=== PATIENT | female | born 1975 | race Caucasian/White ===

== ENCOUNTER → 2016-10-18 | Outpatient (CLI) | payer BC, OTHER ==
--- NOTE | 2016-10-18 12:57 | KCIC ---
EXAM: Bilateral digital screening mammogram. HISTORY: 41-year-old female presents for screening mammography. COMPARISON: A prior study dated 01/03/2009 is not available for comparison. TECHNIQUE: Full field digital craniocaudal and mediolateral oblique views of both breasts are obtained. Computer-aided detection is applied. FINDINGS: Breast parenchymal composition: Level B - Scattered fibroglandular densities. There is a focal density within the 10 o'clock position of the right breast at mid to posterior depth. There are few benign calcifications within both breasts. There is no architectural distortion within either breast. IMPRESSION: BI-RADS Category 0: Needs additional imaging. Further evaluation with spot compression views of density within the 10 o'clock position of the right breast is recommended. Sonographic imaging may also be performed if deemed indicated based on additional imaging findings. The patient will be contacted to return for additional imaging. This study was interpreted with the benefit of Computerized Aided Detection (CAD). Mammography is not 100% sensitive in detecting breast cancer. Therefore, a self breast exam and a clinical breast exam are very important. A negative mammogram does not negate a clinically suspicious finding and should not result in a delay in biopsying a clinically suspicious abnormality. The patient information was entered into the reminder system with a target for her next mammogram. Electronically signed by: Eleni Valera (Oct 18, 2016 12:55:54)
== END | disposition home or self-care (01) ==
LOC: KCIC MAMMO 11:44
PROVIDERS: ATTEND Internal Medicine
DX: Z12.31 Encounter for screening mammogram for malignant neoplasm of breast (principal)
CPT/HCPCS: G0202; 77067

== ENCOUNTER → 2016-11-01 | Outpatient (CLI) | payer BC, OTHER ==
--- NOTE | 2016-11-01 11:13 | RAD ---
DATE: 2 benign 2017 EXAM: DIGITAL DIAGNOSTIC RT HISTORY: Possible abnormality seen on screening COMPARISON: Screening examination 10/18/2016 This study was interpreted with the benefit of Computerized Aided Detection (CAD). FINDINGS: The breast parenchyma unchanged relative to the screening exam. Coned compression cc and MLO images were obtained as well as rolled cc views. On some of the images a nodule is suggested laterally in the breast (cone compression CC image and the rolled view medially) Targeted ultrasound was performed. No abnormality is seen. The findings are probably benign but a follow-up mammographic examination of the right breast in 6 months is suggested for further documentation of no significant pathology IMPRESSION: Probable benign findings BI-RADS CATEGORY: 3 PROBABLE BENIGN FINDING(S-SHORT INTERVAL FOLLOW-UP SUGGESTED RECOMMENDED FOLLOW-UP: 6M 6 MONTH FOLLOW-UP PQRS compliance statement: Patient information was entered into a reminder system with a target due date 05/01/2017 for the next mammogram. Mammography is a sensitive method for finding small breast cancers, but it does not detect them all and is not a substitute for careful clinical examination. A negative mammogram does not negate a clinically suspicious finding and should not result in delay in biopsying a clinically suspicious abnormality. "Our facility is accredited by the [employer] Mammography Program."
== END | disposition home or self-care (01) ==
LOC: KCIC MAMMO 09:54
PROVIDERS: ATTEND Internal Medicine
DX: R92.2 Inconclusive mammogram (principal); Z90.13 Acquired absence of bilateral breasts and nipples
CPT/HCPCS: 76641; G0206; 77065

== ENCOUNTER 2016-12-24 10:20 | Emergency (ER) | payer BC, OTHER ==
[~2016-12-24] VITALS: Ht 154.9 cm; Wt 68.0 kg
[2016-12-24] MEDS ORDERED: IV NORMAL SALINE 1000ML BAG 1,000 ML IV SCH (11:00)
[2016-12-24] MEDS ORDERED: LORAZEPAM 2 MG/ML VIAL. IV ONE (11:00)
--- NOTE | 2016-12-24 11:08 | PHYS DOC ---
Past Medical History Past Medical History: Hypothyroid Past Surgical History: , Other Additional Past Surgical Histo: BREAST REDUCTION Alcohol Use: None Drug Use: None Adult General Chief Complaint Chief Complaint: NAUSEA/VOMITING/DIARRHA HPI HPI Patient is a 41 year old female who presents with complaint of nausea and headache. Patient states that she had a sudden episode earlier today while she was at a meeting at work. Patient states she suddenly had intense head pressure with nausea and lightheadedness. Patient states that she felt like she was going to vomit and possibly pass out. This lasted about 5-10 minutes and then resolved on its own. Patient states that she is no longer having had pressure but is still experiencing nausea and anxiousness. Patient states that yesterday she had a severe headache which lasted throughout the day but states that upon awakening this morning it had resolved. Patient has history of hypothyroidism and states that she has not had any recent medication changes and her lab work 1 -1/2 months ago was normal at that time. Patient denies any associated chest pain, shortness of breath, or abdominal pain. Patient has not taken any other medications. Review of Systems Review of Systems Constitutional: Lightheadedness, anxiousness, Denies fever or chills [] Eyes: Denies change in visual acuity, redness, or eye pain [] HENT: Denies nasal congestion or sore throat [] Respiratory: Denies cough or shortness of breath [] Cardiovascular: Denies chest pain or edema [] GI: Denies abdominal pain, nausea, vomiting, bloody stools or diarrhea [] : Denies dysuria or hematuria [] Musculoskeletal: Denies back pain or joint pain [] Integument: Denies rash or skin lesions [] Neurologic: Headache now resolved, denies focal weakness or sensory changes [] Current Medications Current Medications Current Medications Medications (Trade) Dose Ordered Sig/Luz Start Time Stop Time Status Last Admin Dose Admin Famotidine (Pepcid) 20 mg 1X ONCE 12/24/16 11:45 12/24/16 11:46 DC 12/24/16 11:36 20 MG Lorazepam 1 mg 1 mg 1X ONCE 12/24/16 11:00 12/24/16 11:04 DC 12/24/16 11:17 1 MG Ondansetron HCl (Zofran) 4 mg 1X ONCE 12/24/16 11:45 12/24/16 11:46 DC 12/24/16 11:36 4 MG Sodium Chloride (Iv Sodium Chloride 0.9% 1000ml Bag) 1,000 ml @ 1,000 mls/hr Q1H 12/24/16 11:00 12/24/16 11:59 DC 12/24/16 11:18 1,000 MLS/HR Allergies Allergies Allergies Coded Allergies Type Severity Reaction Last Updated Verified No Known Drug Allergies 12/24/16 No Physical Exam Physical Exam Constitutional: Alert, afebrile, appears mildly anxious. [] HENT: Normocephalic, atraumatic, bilateral external ears normal, oropharynx moist, no oral exudates, nose normal. [] Eyes: PERRLA, EOMI, conjunctiva normal, no discharge. [] Neck: Normal range of motion, no tenderness, supple, no stridor. [] Cardiovascular:Heart rate regular rhythm, no murmur [] Lungs & Thorax: Bilateral breath sounds clear to auscultation [] Abdomen: Bowel sounds normal, soft, no tenderness, no masses, no pulsatile masses. [] Skin: Warm, dry, no erythema, no rash. [] Back: No tenderness, no CVA tenderness. [] Extremities: No tenderness, no cyanosis, no clubbing, ROM intact, no edema. [] Neurologic: Alert and oriented X 3, normal motor function, normal sensory function, no focal deficits noted. [] Current Patient Data Vital Signs Vital Signs Date Time Temp Pulse Resp B/P Pulse Ox O2 Delivery O2 Flow Rate FiO2 12/24/16 10:39 98.2 75 14 153/85 100 Room Air 98.2 Lab Values Laboratory Tests Test 12/24/16 11:10 12/24/16 11:25 12/24/16 11:35 White Blood Count 10.2x10^3/uL (4.0-11.0) Red Blood Count 4.73x10^6/uL (3.50-5.40) Hemoglobin 14.7g/dL (12.0-15.5) Hematocrit 43.5% (36.0-47.0) Mean Corpuscular Volume 92fL (79-100) Mean Corpuscular Hemoglobin 31pg (25-35) Mean Corpuscular Hemoglobin Concent 34g/dL (31-37) Red Cell Distribution Width 12.4% (11.5-14.5) Platelet Count 290x10^3/uL (140-400) Neutrophils (%) (Auto) 64% (31-73) Lymphocytes (%) (Auto) 30% (24-48) Monocytes (%) (Auto) 5% (0-9) Eosinophils (%) (Auto) 1% (0-3) Basophils (%) (Auto) 0% (0-3) Neutrophils # (Auto) 6.5x10^3uL (1.8-7.7) Lymphocytes # (Auto) 3.1x10^3/uL (1.0-4.8) Monocytes # (Auto) 0.5x10^3/uL (0.0-1.1) Eosinophils # (Auto) 0.1x10^3/uL (0.0-0.7) Basophils # (Auto) 0.0x10^3/uL (0.0-0.2) Prothrombin Time 12.6SEC (11.7-14.0) Prothrombin Time INR 1.0 (0.8-1.1) PTT 31SEC (24-38) Sodium Level 141mmol/L (136-145) Potassium Level 3.4mmol/L (3.5-5.1) L Chloride Level 101mmol/L (98-107) Carbon Dioxide Level 23mmol/L (21-32) Anion Gap 17 (6-14) H Blood Urea Nitrogen 16mg/dL (7-20) Creatinine 1.0mg/dL (0.6-1.0) Estimated GFR (Cockcroft-Gault) 61.1 BUN/Creatinine Ratio 16 (6-20) Glucose Level 101mg/dL (70-99) H Calcium Level 10.3mg/dL (8.5-10.1) H Magnesium Level 1.7mg/dL (1.8-2.4) L Total Bilirubin 0.6mg/dL (0.2-1.0) Aspartate Amino Transferase (AST) 14U/L (15-37) L Alanine Aminotransferase (ALT) 24U/L (14-59) Alkaline Phosphatase 58U/L (46-116) Total Protein 8.6g/dL (6.4-8.2) H Albumin 4.7g/dL (3.4-5.0) Albumin/Globulin Ratio 1.2 (1.0-1.7) Thyroid Stimulating Hormone (TSH) 1.429uIU/mL (0.358-3.74) Urine Collection Type Unknown Urine Color Yellow Urine Clarity Clear Urine pH 6.0 Urine Specific [place] 1.010 Urine Protein Negativemg/dL (NEG-TRACE) Urine Glucose (UA) Negativemg/dL (NEG) Urine Ketones (Stick) Negativemg/dL (NEG) Urine Blood Trace (NEG) Urine Nitrite Negative (NEG) Urine Bilirubin Negative (NEG) Urine Urobilinogen Dipstick 0.2mg/dL (0.2 mg/dL) Urine Leukocyte Esterase Moderate (NEG) Urine RBC 3-5/HPF (0-2) Urine WBC 5-10/HPF (0-4) Urine Squamous Epithelial Cells Many/LPF Urine Bacteria Many/HPF (0-FEW) Urine Opiates Screen Neg (NEG) Urine Methadone Screen Neg (NEG) Urine Barbiturates Neg (NEG) Urine Phencyclidine Screen Neg (NEG) Urine Amphetamine/Methamphetamine Neg (NEG) Urine Benzodiazepines Screen Neg (NEG) Urine Cocaine Screen Neg (NEG) Urine Cannabinoids Screen Neg (NEG) Urine Ethyl Alcohol Neg (NEG) Urine Test Negative (NEG) Laboratory Tests 12/24/16 11:10 Laboratory Tests 12/24/16 11:10 EKG EKG Interpreted by me: Heart rate 63, sinus rhythm, normal intervals, normal axis, no acute ST/T-wave abnormalities present [] Radiology/Procedures Radiology/Procedures [facility] [address] [place], [place] [id number] IMAGING REPORT Signed PATIENT: CYNDEE VASQUEZ ACCOUNT: [id number] : 1975 LOCATION: ER AGE: 41 SEX: F EXAM STATUS: REG ER ORD. PHYSICIAN: ANJUM ESTEVEZ MD REASON: headache, near syncope PROCEDURE: HEAD WO CONTRAST CT head without contrast History: Headache, near syncope. Comparison: None. Procedure: Axial images are obtained of the head from the skull base through the vertex without IV contrast. One or more of the following individualized dose reduction techniques were utilized for the study: Automated exposure control Adjustment of mA and/or kV according to patient's size Use of iterative reconstruction technique. Findings: The ventricles and sulci are normal for the patient's age. No mass-effect, intracranial mass, midline shift, hemorrhage or obvious acute infarction is identified. Basilar cisterns are patent. Bone windows demonstrate no significant calvarial abnormality. The visualized paranasal sinuses appear clear. Impression: No acute intracranial process. Please note that CT can be relatively insensitive to acute ischemic infarction for up to 24 hours after symptom onset. DICTATED and SIGNED BY: UZAIR FISH MD DATE: 12/24/16 2006 CC: ANJUM ESTEVEZ MD; EVI COLES MD ~ [] Course & Med Decision Making Course & Med Decision Making Pertinent Labs and Imaging studies reviewed. (See chart for details) The patient was given IV fluids, Ativan, Pepcid, and Zofran. The patient's lab testing showed evidence of urinary tract infection as well as a mildly elevated calcium level. The exact etiology of patient's symptoms are somewhat unclear at this time but do not appear to be life-threatening. The patient was started on Macrobid for treatment of urinary tract infection. Patient was advised to continue with hydration and rest at home with recommended follow-up in the next 3-4 days with patient's primary physician for reevaluation and repeat blood testing to ensure normalization of calcium levels. Advised return to the emergency department for any worsening symptoms. Patient voiced understanding and was in agreement with treatment plan. Dragon Disclaimer Dragon Disclaimer This electronic medical record was generated, in whole or in part, using a voice recognition dictation system. Departure Departure Impression: Primary Impression: Headache Additional Impressions: Nausea Near syncope Urinary tract infection Hypercalcemia Disposition: 01 HOME, SELF-CARE Condition: IMPROVED Referrals: EVI COLES MD (PCP) Patient Instructions: General Headache Without Cause, Hypercalcemia, Nausea, Adult, Urinary Tract Infection Additional Instructions: Follow-up with your primary doctor in the next 3-4 days as she will need repeat blood testing to reevaluate your serum calcium levels as they were found to be mildly elevated today at 10.3. Return to the emergency department for any worsening symptoms. Scripts Nitrofurantoin Monohyd/M-Cryst (Macrobid 100 Mg Capsule)100 Mg Capsule1 Cap PO BID #14 CAP Prov:ANJUM ESTEVEZ MD 12/24/16 Problem Qualifiers Primary Impression: Headache Headache type: unspecified Headache chronicity pattern: episodic headache Intractability: not intractable Qualified Code: R51 - Headache Additional Impressions: Urinary tract infection Urinary tract infection type: site unspecified Hematuria presence: without hematuria Qualified Code: N39.0 - Urinary tract infection, site not specified ANJUM ESTEVEZ MD Dec 24, 2016 11:08
[2016-12-24 11:23] LABS: BASO % 0 % (0-3); EOS % 1 % (0-3); HEMATOCRIT 43.5 % (36.0-47.0); HEMOGLOBIN 14.7 g/dL (12.0-15.5); LYMPH # 3.1 x10^3/uL (1.0-4.8); LYMPH % 30 % (24-48); MEAN CORPUSCULAR HEMOGLOBIN 31 pg (25-35); MEAN CORPUSCULAR HGB CONC 34 g/dL (31-37); MEAN CORPUSCULAR VOLUME 92 fL (79-100); MONO % 5 % (0-9); NEUT % 64 % (31-73); PLATELET COUNT 290 x10^3/uL (140-400); RED BLOOD COUNT 4.73 x10^6/uL (3.50-5.40); RED CELL DISTRIBUTION WIDTH 12.4 % (11.5-14.5); WHITE BLOOD COUNT 10.2 x10^3/uL (4.0-11.0)
[2016-12-24 11:32] LABS: PROTHROMBIN TIME PATIENT 12.6 SEC (11.7-14.0)
[2016-12-24] MEDS ORDERED: ONDANSETRON PF 4 MG/2 ML VIAL. IV ONE (11:45)
[2016-12-24] MEDS ORDERED: FAMOTIDINE 20 MG/2 ML VIAL IVP ONE (11:45)
[2016-12-24 11:50] LABS: CALCIUM 10.3 mg/dL (8.5-10.1); GFR 61.1; POTASSIUM 3.4 mmol/L (3.5-5.1)
[2016-12-24 11:51] LABS: BILIRUBIN,URINE NEGATIVE (NEG); GLUCOSE,URINE NEGATIVE (NEG); NITRITE,URINE NEGATIVE (NEG); PROTEIN,URINE NEGATIVE (NEG-TRACE); UROBILINOGEN,URINE 0.2 mg/dL (0.2 mg/dL)
[2016-12-24 11:54] LABS: BARBITURATES NEG (NEG); BENZODIAZEPINES NEG (NEG); CANNABINOIDS NEG (NEG); COCAINE NEG (NEG); METHADONE NEG (NEG); OPIATES NEG (NEG); PHENCYCLIDINE NEG (NEG)
[2016-12-24 11:55] LABS: ALBUMIN 4.7 g/dL (3.4-5.0); ALBUMIN/GLOBULIN RATIO 1.2 (1.0-1.7); MAGNESIUM 1.7 mg/dL (1.8-2.4); TOTAL BILIRUBIN 0.6 mg/dL (0.2-1.0); TOTAL PROTEIN 8.6 g/dL (6.4-8.2)
[2016-12-24 11:56] LABS: ETHANOL, URINE NEG (NEG)
[2016-12-24 12:08] LABS: BACTERIA,URINE MANY /HPF (0-FEW); SQUAMOUS EPITHELIAL CELL,UR MANY /LPF
[2016-12-24 12:31] LABS: NEG OBC UR NEG; POS OBC UR POS
--- NOTE | 2016-12-24 12:52 | EKG ---
[facility] [address] [place] [address] Test Date: 2016-12-24 Test Time: 11:21:53 Pat Name: CYNDEE VASQUEZ Department: Room: Gender: F Truant Officer: : 1975 Requested By: ANJUM ESTEVEZ Order Number: [id number] Reading MD: Ashu Rhodes Measurements Intervals [place] Rate: 63 P: 48 NV: 138 QRS: 56 QRSD: 74 T: 38 QT: 372 QTc: 384 Interpretive Statements SINUS RHYTHM Electronically Signed On 12-25-2016 10:09:56 CDT by Ashu Rhodes
[2016-12-24 12:55] VITALS: BP 119/69
--- NOTE | 2016-12-24 12:57 | RAD ---
CT head without contrast History: Headache, near syncope. Comparison: None. Procedure: Axial images are obtained of the head from the skull base through the vertex without IV contrast. One or more of the following individualized dose reduction techniques were utilized for the study: Automated exposure control Adjustment of mA and/or kV according to patient's size Use of iterative reconstruction technique. Findings: The ventricles and sulci are normal for the patient's age. No mass-effect, intracranial mass, midline shift, hemorrhage or obvious acute infarction is identified. Basilar cisterns are patent. Bone windows demonstrate no significant calvarial abnormality. The visualized paranasal sinuses appear clear. Impression: No acute intracranial process. Please note that CT can be relatively insensitive to acute ischemic infarction for up to 24 hours after symptom onset.
[2016-12-24] MEDS ORDERED: NITR100C62 PO (13:16)
[2016-12-24] MEDS ORDERED: NITROFURANTOIN MONOHYD/M-CRYST 100 MG CAPSULE. PO ONE (14:00)
== END 2016-12-24 13:28 | disposition home or self-care (01) ==
LOC: ER 10:20
DX: R51 Headache (principal); R11.0 Nausea; R55 Syncope and collapse; N39.0 Urinary tract infection, site not specified; E83.52 Hypercalcemia; E03.9 Hypothyroidism, unspecified; F41.9 Anxiety disorder, unspecified
CPT/HCPCS: 36415; 70450; 80053; 80305; 80320; 81001; 81025; 83735; 84443; 85027; 85610; 85730; 87086; 93005; 96361; 96374; 96375; 99285; J2060; J2405; J7030; S0028; G0481

== ENCOUNTER → 2017-05-23 | Outpatient (CLI) | payer BC, OTHER ==
[~2017-05-23] MED LIST: NITR100C62 PO
--- NOTE | 2017-05-23 13:49 | RAD ---
DATE: 05/23/2017 EXAM: DIGITAL DIAGNOSTIC RT HISTORY: 6 month follow-up of nodularity within the right breast. COMPARISON: 11/01/2016 This study was interpreted with the benefit of Computerized Aided Detection (CAD). The breast parenchyma shows scattered fibroglandular densities. Breast parenchyma level B. FINDINGS: CC, MLO and true lateral digital mammograms of the right breast were obtained. Comparison study is dated 11/01/2016. The area of nodularity within the right breast seen on the previous examination is less prominent on today's mammogram. No definite dominant mass is seen. No malignant appearing calcification or area of architectural distortion is noted. IMPRESSION: The area of nodularity seen on the patient's previous mammogram is less prominent on today's study. Recharacterize patient's mammograms BI-RADS Category 1, negative no mammographic evidence of malignancy with recommendation for routine yearly screening mammography for follow-up. BI-RADS CATEGORY: 1 NEGATIVE RECOMMENDED FOLLOW-UP: 12M 12 MONTH FOLLOW-UP PQRS compliance statement: Patient information was entered into a reminder system with a target due date 10/18/2017 for the next mammogram. Mammography is a sensitive method for finding small breast cancers, but it does not detect them all and is not a substitute for careful clinical examination. A negative mammogram does not negate a clinically suspicious finding and should not result in delay in biopsying a clinically suspicious abnormality. "Our facility is accredited by the [employer] Mammography Program."
== END | disposition home or self-care (01) ==
LOC: MAMMO 13:27
PROVIDERS: ATTEND Internal Medicine
DX: R92.8 Other abnormal and inconclusive findings on diagnostic imaging of breast (principal)
CPT/HCPCS: G0206; 77065

== ENCOUNTER → 2017-10-19 | Outpatient (CLI) | payer BC, OTHER | END | disposition home or self-care (01) | LOC: MAMMO 08:46 | DX: Z12.31 Encounter for screening mammogram for malignant neoplasm of breast (principal); N63.20 Unspecified lump in the left breast, unspecified quadrant | CPT/HCPCS: 77067 ==

== ENCOUNTER → 2017-10-28 | Outpatient (CLI) | payer BC, OTHER | END | disposition home or self-care (01) | LOC: MAMMO 13:16 | DX: N63.20 Unspecified lump in the left breast, unspecified quadrant (principal) | CPT/HCPCS: 76641; 77065 ==

== ENCOUNTER → 2018-04-28 | Outpatient (CLI) | payer BC, OTHER | END | disposition home or self-care (01) | LOC: MAMMO 09:16 | DX: R92.8 Other abnormal and inconclusive findings on diagnostic imaging of breast (principal); E03.9 Hypothyroidism, unspecified | CPT/HCPCS: 76641; 77066; G0279 ==

== ENCOUNTER → 2018-11-10 | Outpatient (CLI) | payer BC, OTHER ==
--- NOTE | 2018-11-10 12:05 | KCIC ---
Left breast diagnostic digital mammograms with 3-D tomosynthesis: Reason for examination: Follow-up nodules. Comparison is made to previous studies dated 04/28/2018, 10/28/2017 and 10/18/2016. Bilateral mammograms in CC and oblique projections were obtained with 2-D imaging and 3-D tomosynthesis imaging on a Siemens Inspiration unit and reviewed on the workstation. Interpretation was made with the benefit of CAD. The skin and nipples show no abnormalities. No abnormal axillary lymph nodes are seen. The breast parenchyma shows scattered fatty and fibroglandular density. (Breast density: Category B.) There continue to be 2 small nodular parenchymal densities posterior medially at approximately the 9:00 C position which are stable. There are no new dominant masses, suspicious calcifications or architectural distortion. Impression: No change in small nodules seen posterior medially in the left breast. Recommend routine mammographic follow-up. BI-RAD Category 2: Benign. "Our facility is accredited by the [employer] Mammography Program." This patient's information has been entered into a reminder system for the patient to be notified with the results of her examination and a target date for the next mammogram. Electronically signed by: Brandi Berman MD (11/10/2018 12:02 PM) [facility]
== END | disposition home or self-care (01) ==
LOC: KCIC MAMMO 10:33
PROVIDERS: ATTEND Internal Medicine
DX: N63.22 Unspecified lump in the left breast, upper inner quadrant (principal)
CPT/HCPCS: 77065; G0279; 77061

== ENCOUNTER → 2020-02-16 | Outpatient (CLI) | payer BC, OTHER ==
--- NOTE | 2020-02-18 09:37 | RAD ---
INDICATION: 44 years of age asymptomatic female patient presents for screening mammography. TECHNIQUE: Bilateral full field craniocaudal and mediolateral oblique images were obtained using digital technique. COMPARISON: Prior mammographic imaging dating back to 10/19/2017. BREAST COMPOSITION: There are scattered fibroglandular densities. FINDINGS: Benign calcifications are present. The parenchymal pattern appears stable. No suspicious masses, microcalcifications or architectural distortion is present to suggest malignancy in either breast. The visualized axillae are unremarkable. IMPRESSION: No mammographic evidence of malignancy. RECOMMENDATION: Annual screening mammography is recommended, unless clinically indicated sooner based on symptoms or change in physical exam. BIRADS 2: BENIGN Electronically signed by: Jb Gonzalez MD (02/18/2020 9:34 AM) [facility]
== END | disposition home or self-care (01) ==
LOC: MAMMO 14:26
PROVIDERS: ATTEND Internal Medicine
DX: Z12.31 Encounter for screening mammogram for malignant neoplasm of breast (principal)
CPT/HCPCS: 77067

== ENCOUNTER → 2021-03-09 | Outpatient (CLI) | payer BC, OTHER ==
--- NOTE | 2021-03-09 11:12 | RAD ---
PROCEDURE: MG BILAT SCREEN+COOKIE HISTORY: The patient is 46 years old and is seen for Reason: ROUTINE / Spl. Instructions: / History: . COMPARISON: February 16, 2020 and April 28, 2018 TECHNIQUE: CC and MLO views of both breasts were obtained. Images were processed by the [employer] computer-aided detection system. DENSITY: There are scattered fibroglandular densities. FINDINGS: Left breast: Unchanged left posterior medial breast mass compared to 2018. No new suspicious microcal cifications, mass or architectural distortion. Right breast: No suspicious mass, architectural distortion or microcalcification. IMPRESSION: Stable bilateral mammograms. Recommend annual screening mammograms per [employer] guidelines. She will be due in one year. BI-RADS category 2 Benign Patient entered into a reminder system for annual screening mammogram. Electronically signed by: Aiden Forbes DO (03/09/2021 11:09 AM) [email or web address]
== END ==
LOC: MAMMO 09:13
PROVIDERS: ATTEND Obstetrics & Gynecology
DX: Z12.31 Encounter for screening mammogram for malignant neoplasm of breast (principal)
CPT/HCPCS: 77063; 77067

== ENCOUNTER → 2021-05-02 | Outpatient (CLI) | payer BC, OTHER ==
[~2021-05-02] MED LIST changes: +LEVO75TA5 PO; +OXYC-325 PO; +PANT20TA2 PO
== END ==
LOC: LAB 10:22
PROVIDERS: ATTEND Surgery
DX: Z01.812 Encounter for preprocedural laboratory examination (principal); Z20.822 Contact with and (suspected) exposure to COVID-19; K82.4 Cholesterolosis of gallbladder
CPT/HCPCS: U0003; U0005

== ENCOUNTER 2021-05-04 08:34 | Day surgery (SDC) | payer BC, OTHER ==
[~2021-05-04] VITALS: Ht 154.9 cm; Wt 67.8 kg
[~2021-05-04 08:34] MED LIST changes: +ACETAMINOPHEN 500 MG TABLET PO PRN; +HYDROmorphone 2 MG/ML VIAL IVP PRN; +IV RINGERS,LACTATED 1000ML 1,000 ML IV SCH; -LEVO75TA5 PO; +MORPHINE SULFATE 2 MG/ML INJ. IVP PRN; -OXYC-325 PO; -PANT20TA2 PO; +PROCHLORPERAZINE 10 MG/2 ML VIAL. IVP PRN; +ceFAZolin SODIUM IV Push 1 GM VIAL. IVP PRN; +fentaNYL PF VIAL 100 MCG/2 ML VIAL IVP PRN
[2021-05-04 09:05] VITALS: BP 128/91
[2021-05-04] MEDS ORDERED: ePHEDrine PF IN SALINE 50 MG/10 ML SYRINGE. IV ONE (09:10)
[2021-05-04] MEDS ORDERED: GLYCOPYRROLATE 1 MG/5 ML VIAL. ONE (09:10)
[2021-05-04] MEDS ORDERED: PHENYLEPHRINE in 0.9% NACL PF 1 MG/10 ML SYRINGE. IV ONE (09:10)
[2021-05-04] MEDS ORDERED: NEOSTIGMINE METHYLSULFATE 5 MG/5 ML SYRINGE. ONE ×2 (09:10→09:11)
[2021-05-04] MEDS ORDERED: PANT20TA2 PO (09:14)
[2021-05-04] MEDS ORDERED: LEVO75TA5 PO (09:14)
[2021-05-04] MEDS ORDERED: DEXAMETHASONE SOD PHOS 4 MG/ML VIAL ONE (09:19)
[2021-05-04] MEDS ORDERED: PROPOFOL 10 MG/ML (20ML) VIAL. IV ONE (09:19)
[2021-05-04] MEDS ORDERED: ONDANSETRON PF 4 MG/2 ML VIAL. ONE (09:19)
[2021-05-04] MEDS ORDERED: LIDOCAINE 2% PF 5 ML VIAL. ONE (09:19)
[2021-05-04] MEDS ORDERED: KETOROLAC 30 MG/ML VIAL. ONE (09:19)
[2021-05-04] MEDS ORDERED: fentaNYL PF VIAL 100 MCG/2 ML VIAL ONE (09:20)
[2021-05-04] MEDS ORDERED: ROCURONIUM 50 MG/5 ML VIAL. ONE (09:20)
[2021-05-04] MEDS ORDERED: MIDAZOLAM HCL/PF 2 MG/2 ML VIAL. ONE (09:20)
--- NOTE | 2021-05-04 09:20 | NUR ---
PT HERE IN OPD FOR CHOLECYSTECTOMY. ORDERS TO GIVE 1CC SPY AGENT GREEN. 1CC GIVEN IV PER ORDERS.
[2021-05-04] MEDS ORDERED: HYDROmorphone 2 MG/ML VIAL ONE (09:33)
[2021-05-04] MEDS ORDERED: SURGICEL HEMOSTAT 4X8 EACH. ONE (09:53)
[2021-05-04] MEDS ORDERED: IOHEXOL 300 MG/ML 50 ML VIAL. ONE (09:53)
[2021-05-04] MEDS ORDERED: BUPIVACAINE-EPI 0.25%-1:200000 MPF 30 ML VIAL. ONE (09:53)
--- NOTE | 2021-05-04 10:40 | PDOC4 ---
Operative Note Operative Note Date: May 042020 at 1036 Preoperative diagnosis: Gallbladder polyp Postoperative diagnosis: Same Procedure: Laparoscopic cholecystectomy with fluorescein cholangiography Surgeon: Aditya Specimen: Gallbladder Dictation: Patient is a 46-year-old female with right upper quadrant abdominal pain ultrasound showing gallbladder polyp. Procedure of laparoscopic cholecystectomy was explained to the patient detail risk benefits were also discussed including bleeding infection injury to intra-abdominal contents possible necessitating further open operations alternatives to this procedure also discussed with the patient who seemed to understand and gave a verbal written consent to have the procedure performed. Patient was taken to the operating room placed in the supine position general anesthesia was initiated once patient was sleeping intubated her abdomen was prepped and draped usual sterile fashion using ChloraPrep. Area just below the umbilicus was injected with quarter percent Marcaine with epinephrine incision was made 11 blade scalpel and a varies needle was placed within the abdomen creating pneumoperitoneum once this was complete the millimeter port was placed and a 5 mm camera was placed within the abdomen which was inspected no other abnormalities were noted. 5 mm port was placed in the epigastrium a 5 mm port was placed in the right midabdomen a 5 mm port was placed in the right midabdomen all under direct visualization. The dome of the gallbladder is grasped retracted cephalad the infundibulum of the gallbladder is grasped retracted laterally exposing the triangle adherent tissues the triangle were taken down exposing the cystic duct and cystic artery fluorescein cholangiography showed good dye within the cystic and common bile ducts. The cystic duct was doubly clipped and transected the cystic artery was doubly clipped and transected the gallbladder was taken off the liver with hook electrocautery placed in Endo Catch bag moving the umbilicus right upper quadrant is irrigated suctioned dry hemostasis deemed to be appropriate the pneumoperitoneum was reduced all ports were removed the fascial defect at the umbilicus was closed with a [id number] 0 Vicryl suture and the skin was reapproximated all port sites for subcuticular Monocryl Mastisol Steri-Strips and island dressings were applied. Patient was awakened and extubated in the operating room taken to recovery in stable condition all sponge instrument needle counts listed as correct estimated blood loss 10 mL KIAH GARRISON MD May 04, 2021 10:40
[2021-05-04] MEDS ORDERED: OXYC-325 PO (10:43)
--- NOTE | 2021-05-04 10:44 | DISCH ---
DISCHARGE INSTRUCTIONS Condition on Discharge Condition on Discharge: Stable Activity After Discharge Activity Instructions for Disc: Avoid exertion Other activity instructions: No lifting more than 20 pounds for 2 weeks Diet after Discharge Diet after Discharge: Low Fat Wound Incision Care Other wound/incision instructi: May shower in 24 hours Contacting the after DC Call your doctor for: If your condition worsens Follow-Up Follow up with: Dr. Garrison in 2 weeks KIAH GARRISON MD May 04, 2021 10:44
[2021-05-04 11:12] VITALS: BP 119/67
[2021-05-04] MEDS ORDERED: oxyCODONE/APAP 5/325 1 TAB TABLET PO ONE (11:15)
[2021-05-04] MEDS ORDERED: PROCHLORPERAZINE 10 MG/2 ML VIAL. ONE (11:50)
--- NOTE | 2021-05-05 17:11 | PATHOLOGY ---
[facility] Accession Number: [id number] . 01 Material submitted: . gallbladder - GALLBLADDER . 01 Clinical history: . GALLBLADDER POLYP LAP CHOLECYSTECTOMY . 02 Diagnosis: Gallbladder "gallbladder cholecystectomy": - Moderate chronic cholecystitis. ([facility]; 05/05/2021) QMS 05/05/2021 1404 Local . 02 Electronically signed: . Earnest Melo MD, Pathologist NPI- [id number] . 01 Gross description: . Fixative: Formalin Labeled: Gallbladder Specimen received: Intact gallbladder Dimensions: 7.8 x 3.4 x 3.3 cm Serosa: Blue-wh[place] Lymph node: Not identified Mucosa: Velvety, bile-stained with mild yellow streaking Average wall thickness: 0.1 cm Calculi: None present Abnormalities: None identified . A1- Bilingual Office Assistant body, fundus, and the cystic duct margin. ([facility]; 05/04/2021) NRI/NRI 05/04/2021 1606 Local . 02 Pathologist provided ICD-10: K81.1 . 02 CPT . 931512 Specimen Comment: A courtesy copy of this report has been sent to [phone], [phone] Specimen Comment: [id number] Specimen Comment: Report sent to / DR COLES Performed at: 01 [facility] [address], [place] [id number] MD Earnest Melo MD Phone: [phone] Performed at: 02 [facility] [address] [place], [place] [id number] MD Alex Doan MD Phone: [phone]
== END 2021-05-04 12:06 | disposition home or self-care (01) ==
LOC: SURG 08:34
PROVIDERS: ATTEND Surgery
DX: K81.1 Chronic cholecystitis (principal); K21.9 Gastro-esophageal reflux disease without esophagitis; E03.9 Hypothyroidism, unspecified; Z79.899 Other long term (current) drug therapy; Z98.890 Other specified postprocedural states
CPT/HCPCS: 47563; 81025; A4364; A4930; A6219; J0690; J0780; J1100; J1170; J1885; J2250; J2370; J2405; J2704; J3010; J3490; A4657; J2710; Q9967